=== PATIENT | female | born 1960 | race Caucasian/White ===

== ENCOUNTER 2018-04-12 13:31 | Outpatient (CLI) | payer BC | END 2018-04-12 13:32 | disposition home or self-care (01) | LOC: BICMAMMO 13:31 | PROVIDERS: ATTEND Obstetrics & Gynecology | DX: Z12.31 Encounter for screening mammogram for malignant neoplasm of breast (principal); Z98.82 Breast implant status | CPT/HCPCS: 77063; 77067 ==

== ENCOUNTER 2021-07-15 09:08 | Outpatient (CLI) | payer BC | END 2021-07-15 09:09 | disposition home or self-care (01) | LOC: BICMAMMO 09:08 | PROVIDERS: ATTEND Family Medicine | DX: Z12.31 Encounter for screening mammogram for malignant neoplasm of breast (principal); Z98.82 Breast implant status | CPT/HCPCS: 77063; 77067 ==

== ENCOUNTER 2023-06-15 12:43 | Outpatient (CLI) | payer BC | END 2023-06-15 12:44 | disposition home or self-care (01) | LOC: BICMAMMO 12:43 | PROVIDERS: ATTEND Family Medicine | DX: Z12.31 Encounter for screening mammogram for malignant neoplasm of breast (principal); Z98.82 Breast implant status | CPT/HCPCS: 77063; 77067 ==

== ENCOUNTER 2024-07-25 09:01 | Outpatient (CLI) | payer MEDICARE, OTHER | END 2024-07-25 09:02 | disposition home or self-care (01) | LOC: BICMAMMO 09:01 | PROVIDERS: ATTEND Family Medicine | DX: Z12.31 Encounter for screening mammogram for malignant neoplasm of breast (principal); Z98.82 Breast implant status | CPT/HCPCS: 77063; 77067 ==

== ENCOUNTER 2025-08-13 13:07 | Outpatient (CLI) | payer MEDICARE, OTHER ==
[2025-08-13 14:30] LABS: #Basophils 0.07 10x3/uL (0.0-0.2); #Eosinophils 0.06 10x3/uL (0.0-0.7); #Monocytes 0.55 10x3/uL (0.11-0.59); #Neutrophils 4.09 10x3/uL (1.40-6.50); %Basophils 1.0 % (0.0-1.0); %Eosinophils 0.9 % (0.0-10.0); %Lymphocytes 28.3 % (21.0-51.0); %Monocytes 8.2 % (0.0-10.0); %Neutrophils 61.5 % (42.0-75.0); Hematocrit 39.5 % (36.0-47.0); Hemoglobin 12.3 g/dL (12.0-16.0); Mean Corpuscular Hemoglobin 28.4 pg (27.0-31.0); Mean Corpuscular Volume 91.2 fL (78.0-98.0); Platelet Count 239 10x3/uL (130-400); Red Blood Cell (RBC) Count 4.33 mill/uL (4.20-5.40); White Blood Cell (WBC) Count 6.67 10x3/uL (4.8-10.8)
[2025-08-13 14:43] LABS: Anion Gap 12 mmol/L (10-20); BUN (Urea Nitrogen) 19 mg/dL (9.8-20.1); Calc. Creatinine Clearance 0 mL/min (70-130); Calcium 9.1 mg/dL (7.8-10.44); Carbon Dioxide 30 mmol/L (23-31); Chloride 106 mmol/L (98-107); Glucose 78 mg/dL (80-115); Potassium 4.0 mmol/L (3.5-5.1); Sodium 144 mmol/L (136-145)
== END 2025-08-13 13:08 | disposition home or self-care (01) ==
LOC: LABBT 13:07
PROVIDERS: ATTEND Orthopaedic Surgery
DX: Z01.818 Encounter for other preprocedural examination (principal); M67.432 Ganglion, left wrist
CPT/HCPCS: 80048; 85025; 93005; 93010

== ENCOUNTER 2025-08-16 06:03 | Day surgery (SDC) | payer MEDICARE, OTHER ==
[2025-08-13 13:27] VITALS: BMI 21.2
[2025-08-16] MEDS ORDERED: Ondansetron PF 4 MG/2 ML Vial ONE (07:18)
[2025-08-16] MEDS ORDERED: PROPOFOL 200 MG/20 ML VIAL ONE (07:43)
== END 2025-08-16 09:57 | disposition home or self-care (01) ==
LOC: SDC 06:03
PROVIDERS: ATTEND Orthopaedic Surgery
PROC: 0LB60ZZ Excision of Left Lower Arm and Wrist Tendon, Open Approach (ICD-10-PCS; principal; 2025-08-16)
DX: M67.432 Ganglion, left wrist (principal); E03.9 Hypothyroidism, unspecified; Z91.0110 Allergy to milk products, unspecified; Z79.890 Hormone replacement therapy
CPT/HCPCS: 25111; A6223; J1100; J2405; J2704; 88304